=== PATIENT | female | born 1980 | race Caucasian/White ===

== ENCOUNTER 2016-09-09 20:09 | Emergency (ER) | payer BC ==
[~2016-09-09] VITALS: Ht 157.5 cm; Wt 61.2 kg
[~2016-09-09 20:09] MED LIST: LIPA1CAP6 PO; ONDA8TAB12 PO; PANT40TA3 PO; SODI20VI2 IV; TRAM50TA PO
[2016-09-09] MEDS ORDERED: IV NORMAL SALINE 1000ML BAG 1,000 ML IV SCH (20:30)
[2016-09-09 20:45] LABS: BASO % 0 % (0-3); EOS % 1 % (0-3); HEMATOCRIT 34.4 % (36.0-47.0); LYMPH # 0.7 x10^3/uL (1.0-4.8); LYMPH % 12 % (24-48); MEAN CORPUSCULAR HEMOGLOBIN 25 pg (25-35); MEAN CORPUSCULAR HGB CONC 32 g/dL (31-37); MEAN CORPUSCULAR VOLUME 79 fL (79-100); MONO % 6 % (0-9); NEUT % 81 % (31-73); PLATELET COUNT 209 x10^3/uL (140-400); RED BLOOD COUNT 4.34 x10^6/uL (3.50-5.40); RED CELL DISTRIBUTION WIDTH 20.5 % (11.5-14.5); WHITE BLOOD COUNT 5.7 x10^3/uL (4.0-11.0)
[2016-09-09] MEDS ORDERED: ONDANSETRON PF 4 MG/2 ML VIAL. IV ONE (20:45)
[2016-09-09] MEDS ORDERED: HYDROMORPHONE 2 MG/ML VIAL. IV ONE (20:45)
--- NOTE | 2016-09-09 20:58 | PHYS DOC ---
Past Medical History Past Medical History: Pancreatitis Past Surgical History: Other Additional Past Surgical Histo: Whipple, portacath for TPN Alcohol Use: None Drug Use: None Adult General Chief Complaint Chief Complaint: ABDOMINAL PAIN HPI HPI Patient is a 36 year old female with chronic pancreatitis who presents with few days of nbnb emesis x multiple and LUQ abdominal pain that is constant and gradually worsening. States this feels exactly like prior pancreatitis pains. States she usually comes to the ED to get symptom control and then returns home for bowel rest and TPN administration. Had a normal BM today. Denies f/c, dysuria, back pain, dark or bloody stools, abd distension, chest pain, cough. Review of Systems Review of Systems Constitutional: Denies fever or chills [] Eyes: Denies change in visual acuity, redness, or eye pain [] HENT: Denies nasal congestion or sore throat [] Respiratory: Denies cough or shortness of breath [] Cardiovascular: No additional information not addressed in HPI [] GI: Denies bloody stools or diarrhea [] : Denies dysuria or hematuria [] Musculoskeletal: Denies back pain or joint pain [] Integument: Denies rash or skin lesions [] Neurologic: Denies headache, focal weakness or sensory changes [] Endocrine: Denies polyuria or polydipsia [] Current Medications Current Medications Current Medications Medications (Trade) Dose Ordered Sig/Jessica Start Time Stop Time Status Last Admin Dose Admin Diphenhydramine HCl (Benadryl) 25 mg 1X ONCE 09/09/16 21:30 09/09/16 21:31 DC 09/09/16 22:18 25 MG Hydromorphone HCl (Dilaudid) 1 mg 1X ONCE 09/09/16 21:30 09/09/16 21:31 DC 09/09/16 22:18 1 MG Ondansetron HCl (Zofran) 8 mg 1X ONCE 09/09/16 20:45 09/09/16 20:46 DC 09/09/16 20:43 8 MG Sodium Chloride (Iv Sodium Chloride 0.9% 1000ml Bag) 1,000 ml @ 1,000 mls/hr Q1H 09/09/16 20:30 09/09/16 21:29 DC 09/09/16 20:43 1,000 MLS/HR Allergies Allergies Allergies Coded Allergies Type Severity Reaction Last Updated Verified acetaminophen Allergy Unknown removal of 85% of pancreas 01/04/14 No ketorolac Allergy Unknown itching, swelling 01/04/14 No metoclopramide Allergy Unknown shakes 01/04/14 No Physical Exam Physical Exam Constitutional: Well developed, well nourished, no acute distress, non-toxic appearance. [] HENT: Normocephalic, atraumatic, bilateral external ears normal, oropharynx moist, nose normal. [] Eyes: PERRLA, EOMI. [] Neck: Normal range of motion, supple. [] Cardiovascular:Heart rate regular rhythm [] Lungs & Thorax: Bilateral breath sounds clear to auscultation [] Abdomen: Bowel sounds normal, soft, mild LUQ tenderness, no guarding or rebound. [] Skin: Warm, dry, no erythema, no rash. [] Back: No tenderness, no CVA tenderness. [] Extremities: No tenderness, ROM intact, no edema. [] Neurologic: Alert and oriented X 3, normal motor function, normal sensory function, no focal deficits noted. [] Psychologic: Affect normal, judgement normal, mood normal. [] Current Patient Data Vital Signs Vital Signs Date Time Temp Pulse Resp B/P Pulse Ox O2 Delivery O2 Flow Rate FiO2 09/09/16 20:15 98.1 122 18 141/74 99 Room Air 98.1 Lab Values Laboratory Tests Test 09/09/16 20:36 White Blood Count 5.7x10^3/uL (4.0-11.0) Red Blood Count 4.34x10^6/uL (3.50-5.40) Hemoglobin 11.0g/dL (12.0-15.5) L Hematocrit 34.4% (36.0-47.0) L Mean Corpuscular Volume 79fL (79-100) Mean Corpuscular Hemoglobin 25pg (25-35) Mean Corpuscular Hemoglobin Concent 32g/dL (31-37) Red Cell Distribution Width 20.5% (11.5-14.5) H Platelet Count 209x10^3/uL (140-400) Neutrophils (%) (Auto) 81% (31-73) H Lymphocytes (%) (Auto) 12% (24-48) L Monocytes (%) (Auto) 6% (0-9) Eosinophils (%) (Auto) 1% (0-3) Basophils (%) (Auto) 0% (0-3) Neutrophils # (Auto) 4.6x10^3uL (1.8-7.7) Lymphocytes # (Auto) 0.7x10^3/uL (1.0-4.8) L Monocytes # (Auto) 0.3x10^3/uL (0.0-1.1) Eosinophils # (Auto) 0.1x10^3/uL (0.0-0.7) Basophils # (Auto) 0.0x10^3/uL (0.0-0.2) Platelet Estimate Adequate (ADEQUATE) Hypochromasia Slight Anisocytosis Mod Microcytosis Slight Ovalocytes Mod Schistocytes Occ Sodium Level 144mmol/L (136-145) Potassium Level 3.3mmol/L (3.5-5.1) L Chloride Level 107mmol/L (98-107) Carbon Dioxide Level 26mmol/L (21-32) Anion Gap 11 (6-14) Blood Urea Nitrogen 8mg/dL (7-20) Creatinine 0.8mg/dL (0.6-1.0) Estimated GFR (Cockcroft-Gault) 80.7 Glucose Level 202mg/dL (70-99) H Calcium Level 9.0mg/dL (8.5-10.1) Total Bilirubin 0.3mg/dL (0.2-1.0) Direct Bilirubin 0.1mg/dL (0.0-0.2) Aspartate Amino Transferase (AST) 29U/L (15-37) Alanine Aminotransferase (ALT) 24U/L (14-59) Alkaline Phosphatase 137U/L (46-116) H Total Protein 7.5g/dL (6.4-8.2) Albumin 3.2g/dL (3.4-5.0) L Lipase 31U/L (73-393) L Laboratory Tests 09/09/16 20:36 Laboratory Tests 09/09/16 20:36 Course & Med Decision Making Course & Med Decision Making Pertinent Labs and Imaging studies reviewed. (See chart for details) Laboratory evaluation is unremarkable. She is feeling much better after medications and ready to go home. Abdominal exam s/nt/nd. Return precautions given. She understands and agrees with plan. Dragon Disclaimer Dragon Disclaimer This electronic medical record was generated, in whole or in part, using a voice recognition dictation system. Departure Departure Impression: Primary Impression: Abdominal pain Additional Impression: Nausea & vomiting Disposition: 01 HOME, SELF-CARE Condition: STABLE Referrals: ALIX ODONNELL (PCP) Patient Instructions: Abdominal Pain, [id number] Additional Instructions: Follow up with your primary care doctor. Return for any concerns. Problem Qualifiers Primary Impression: Abdominal pain Abdominal location: left upper quadrant Qualified Code: R10.12 - Left upper quadrant pain Additional Impression: Nausea & vomiting Vomiting type: unspecified Vomiting Intractability: non-intractable Qualified Code: R11.2 - Nausea with vomiting, unspecified Sheyla KILLIAN MD Sep 09, 2016 20:58
[2016-09-09 21:11] LABS: ANISOCYTOSIS MOD; CREATININE 0.8 mg/dL (0.6-1.0); GFR 80.7; HYPOCHROMIA SLIGHT; MICROCYTOSIS SLIGHT; PLT ESTIMATE ADEQUATE (ADEQUATE); POTASSIUM 3.3 mmol/L (3.5-5.1)
[2016-09-09 21:12] LABS: OVALOCYTES MOD; SCHISTOCYTES OCC
[2016-09-09 21:16] LABS: ALBUMIN 3.2 g/dL (3.4-5.0); DIRECT BILIRUBIN 0.1 mg/dL (0.0-0.2); TOTAL BILIRUBIN 0.3 mg/dL (0.2-1.0); TOTAL PROTEIN 7.5 g/dL (6.4-8.2)
[2016-09-09] MEDS ORDERED: DIPHENHYDRAMINE HCL 25 MG CAPSULE PO ONE (21:30)
[2016-09-09] MEDS ORDERED: HYDROMORPHONE 2 MG/ML VIAL. IVP ONE (21:30)
[2016-09-09 22:32] VITALS: BP 105/60
== END 2016-09-09 22:45 | disposition home or self-care (01) ==
LOC: ER 20:10
DX: R10.12 Left upper quadrant pain (principal); R11.2 Nausea with vomiting, unspecified; Z88.6 Allergy status to analgesic agent; Z88.8 Allergy status to other drugs, medicaments and biological substances
CPT/HCPCS: 36415; 80048; 80076; 83690; 85007; 85027; 96361; 96374; 96375; 96376; 99284; J1170; J2405; J7030; Q0163

== ENCOUNTER 2016-12-03 14:08 | Emergency (ER) | payer BC ==
[~2016-12-03] VITALS: Ht 157.5 cm; Wt 63.5 kg
[2016-12-03] MEDS ORDERED: HYDROmorphone 2 MG/ML VIAL IM ONE (15:00)
[2016-12-03] MEDS ORDERED: diphenhydrAMINE 50 MG/ML VIAL IM ONE (15:00)
[2016-12-03] MEDS ORDERED: ONDANSETRON PF 4 MG/2 ML VIAL. IM ONE (15:00)
--- NOTE | 2016-12-03 15:09 | PHYS DOC ---
Past Medical History Past Medical History: GERD, Pancreatitis Past Surgical History: Appendectomy, Cholecystectomy Additional Past Surgical Histo: WHIPPLE, REVISION OF ADHESIONS, HERNIA REPAIR, DENTAL IMPLANTS Alcohol Use: None Drug Use: None Adult General Chief Complaint Chief Complaint: ABDOMINAL PAIN HPI HPI Patient is a 36 year old female who presents to the ED with a complaint of abdominal pain and vomiting for "a few days". The patient has a long history of pancreatitis issues. She is status post Whipple procedure. She has a port and gives herself TPN at home as needed. Patient states when she is feeling well she is able to eat and drink some but when she is having flareups she uses the TPN at home. Today she is complaining of nausea and vomiting, last vomited this morning. She took Zofran ODT, the last time at noon. The patient did use her TPN overnight and got about 1800 mL in 18 hours. I have seen this patient many times at [facility]. I ask her whether she goes to other hospitals and she states that she occasionally goes to [facility], she does not remember the last time she was there, the last time was about maybe 2 months ago. She does not have a primary care doctor here [place], she states the reason she started coming to [place] is that she had heard of a doctor here but it's no one that she has been seeing. She sees a specialist in [place], a pancreas specialist. Her next appointment is in 1-1/2 weeks. Primary care is through Dr. Rossana Odonnell but she said it's been a few months since she saw her. She sees pain management Dr. Villela at the pain [facility], she is prescribed look with oxycodone, she took the last dose about 10:30 today. She's been seeing him for about 2 years. Review of Systems Review of Systems Constitutional: Denies fever or chills [] HENT: Denies nasal congestion or sore throat [] Respiratory: Denies cough or shortness of breath [] Cardiovascular: No additional information not addressed in HPI [] GI: As in history of present illness Musculoskeletal: Denies back pain or joint pain [] Integument: Denies rash or skin lesions [] Neurologic: Denies headache, focal weakness or sensory changes [] Current Medications Current Medications Current Medications Medications (Trade) Dose Ordered Sig/Jessica Start Time Stop Time Status Last Admin Dose Admin Diphenhydramine HCl (Benadryl) 25 mg 1X ONCE 12/03/16 15:00 12/03/16 15:07 DC 12/03/16 15:15 25 MG Hydromorphone HCl (Dilaudid) 1 mg 1X ONCE 12/03/16 15:00 12/03/16 15:07 DC 12/03/16 15:19 1 MG Ondansetron HCl (Zofran) 8 mg 1X ONCE 12/03/16 15:00 12/03/16 15:07 DC 12/03/16 15:14 8 MG Allergies Allergies Allergies Coded Allergies Type Severity Reaction Last Updated Verified acetaminophen Allergy Unknown removal of 85% of pancreas 01/04/14 No ketorolac Allergy Unknown itching, swelling 01/04/14 No metoclopramide Allergy Unknown shakes 01/04/14 No Physical Exam Physical Exam Constitutional: Well developed, well nourished, no acute distress, non-toxic appearance. Alert, mentating normally, entirely nontoxic in appearance. She is tachycardic in the 120s. HENT: Normocephalic, atraumatic, bilateral external ears normal, nose normal. [ ] Eyes: conjunctiva normal, no discharge. [] Neck: Normal range of motion, no stridor. [] Cardiovascular:Heart rate regular rhythm, no murmur [] Lungs & Thorax: Bilateral breath sounds clear to auscultation [] Abdomen: Bowel sounds normal, soft, nondistended, no tenderness, no masses, no pulsatile masses. [] Skin: Warm, dry, no erythema, no rash. [] Extremities: No tenderness, no cyanosis, no clubbing, ROM intact, no edema. [] Neurologic: Alert and oriented X 3, normal motor function, normal sensory function, no focal deficits noted. [] Current Patient Data Vital Signs Vital Signs Date Time Temp Pulse Resp B/P (MAP) Pulse Ox O2 Delivery O2 Flow Rate FiO2 12/03/16 15:31 105 22 120/84 (96) 97 Room Air 12/03/16 14:18 99.3 99.3 Lab Values Laboratory Tests Test 12/03/16 13:41 POC Urine HCG, Qualitative Hcg negative (Negative) EKG EKG [] Radiology/Procedures Radiology/Procedures [] Course & Med Decision Making Course & Med Decision Making Pertinent Labs and Imaging studies reviewed. (See chart for details) 36-year-old female with a history of chronic/recurrent pancreatitis presents with the complaint of abdominal pain and vomiting. I was able to review the patient's previous record here. I have seen this patient many times in the past. I discussed with the patient and her that we often check labs and they are normal. ED nursing staff tried twice to get an IV started on the patient and were not able to do so. The patient has her port accessed but she states that is only to be used for TPN and nothing else. I feel it would be appropriate to treat the patient with IM medications today since we did have a difficult time getting IV access and I feel its necessarily indicated to keep trying to get an IV. The patient will be able to continue to use TPN so her hydration status should not be compromised. The patient is tachycardic here but I suspect that may be related to some medication. The patient is very nontoxic and afebrile. She states her heart rate is often high when she is having a flareup. The patient was given IM dosed medications for pain and nausea and discharged with her [] Dragon Disclaimer Dragon Disclaimer This electronic medical record was generated, in whole or in part, using a voice recognition dictation system. Departure Departure Impression: Primary Impression: Nausea & vomiting Disposition: 01 HOME, SELF-CARE Condition: STABLE Referrals: ALIX ODONNELL (PCP) Additional Instructions: As we discussed, continue to use your TPN as ordered. Make sure to follow up with your providers who help manage your chronic medical conditions. ZEENAT REDMAN MD Dec 03, 2016 15:09
[2016-12-03 15:31] VITALS: BP 120/84
== END 2016-12-03 15:39 | disposition home or self-care (01) ==
LOC: ER 14:08
DX: R11.2 Nausea with vomiting, unspecified (principal); R00.0 Tachycardia, unspecified; R10.9 Unspecified abdominal pain; K21.9 Gastro-esophageal reflux disease without esophagitis; Z88.8 Allergy status to other drugs, medicaments and biological substances; Z88.6 Allergy status to analgesic agent; Z90.49 Acquired absence of other specified parts of digestive tract
CPT/HCPCS: 81025; 96372; 99284; J1170; J1200; J2405

== ENCOUNTER 2017-03-25 20:11 | Emergency (ER) | payer BC ==
[~2017-03-25] VITALS: Ht 157.5 cm; Wt 65.8 kg
[2017-03-25 20:25] LABS: BILIRUBIN,URINE NEGATIVE (NEG); GLUCOSE,URINE NEGATIVE (NEG); NITRITE,URINE NEGATIVE (NEG); PROTEIN,URINE NEGATIVE (NEG-TRACE); UROBILINOGEN,URINE 0.2 mg/dL (0.2 mg/dL)
[2017-03-25] MEDS ORDERED: ONDANSETRON PF 4 MG/2 ML VIAL. IV ONE ×2 (20:30→22:00)
[2017-03-25] MEDS ORDERED: IV NORMAL SALINE 1000ML BAG 1,000 ML IV SCH (20:30)
--- NOTE | 2017-03-25 20:30 | PHYS DOC ---
Past Medical History Past Medical History: GERD, Pancreatitis Past Surgical History: Appendectomy, Cholecystectomy Additional Past Surgical Histo: WHIPPLE, REVISION OF ADHESIONS, HERNIA REPAIR, DENTAL IMPLANTS Alcohol Use: None Drug Use: None Adult General Chief Complaint Chief Complaint: ABDOMINAL PAIN HPI HPI Patient is a 36 year old female who presents with nausea, vomiting and abdominal pain. Patient has chronic pancreatitis, chronic vomiting, chronic abdominal pain. She's had a prior Whipple procedure and now has a port. She states this episode started last Sunday. She's been vomiting 10 times to the point where now she is dry heaving. Diffuse abdominal pain. No diarrhea. No blood in her stool. No urinary complaints. No recent travel. No fever or chills. No cough or cold symptoms. She has had multiple prior visits last one was December 03, 2016 for similar complaints here at [facility]. Review of Systems Review of Systems Constitutional: Denies fever or chills Eyes: Denies change in visual acuity, redness, or eye pain HENT: Denies nasal congestion or sore throat Respiratory: Denies cough or shortness of breath Cardiovascular: No chest pain GI: POS abdominal pain, POS nausea, vomiting, DENIES bloody stools or diarrhea : Denies dysuria or hematuria Musculoskeletal: Denies back pain or joint pain Integument: Denies rash or skin lesions Current Medications Current Medications Current Medications Medications (Trade) Dose Ordered Sig/Jessica Start Time Stop Time Status Last Admin Dose Admin Diphenhydramine HCl (Benadryl) 25 mg 1X ONCE 03/25/17 21:00 03/25/17 21:01 DC 03/25/17 20:50 25 MG Hydromorphone HCl (Dilaudid) 1 mg 1X ONCE 03/25/17 22:00 03/25/17 22:01 DC 03/25/17 21:59 1 MG Ondansetron HCl (Zofran) 4 mg 1X ONCE 03/25/17 22:00 03/25/17 22:01 DC 03/25/17 22:00 4 MG Sodium Chloride 1,000 ml @ 1,000 mls/hr 1X ONCE 03/25/17 22:00 03/25/17 22:59 03/25/17 22:00 1,000 MLS/HR Allergies Allergies Allergies Coded Allergies Type Severity Reaction Last Updated Verified acetaminophen Allergy Unknown removal of 85% of pancreas 01/04/14 No ketorolac Allergy Unknown itching, swelling 01/04/14 No metoclopramide Allergy Unknown shakes 01/04/14 No Physical Exam Physical Exam Constitutional: Well developed, well nourished, no acute distress, non-toxic appearance. HENT: Normocephalic, atraumatic, bilateral external ears normal, oropharynx moist, no oral exudates, nose normal. Eyes: PERRLA, EOMI, conjunctiva normal, no discharge. Neck: Normal range of motion, no tenderness, supple, no stridor. Cardiovascular:Heart rate regular rhythm, no murmur Lungs & Thorax: Bilateral breath sounds clear to auscultation Abdomen: Bowel sounds normal, soft, mild diffuse tenderness, no masses, no pulsatile masses. Skin: Warm, dry, no erythema, no rash. Back: No tenderness, no CVA tenderness. Extremities: No tenderness, no cyanosis, no clubbing, ROM intact, no edema. Neurologic: Alert and oriented X 3, normal motor function, normal sensory function, no focal deficits noted. Psychologic: Affect normal, judgement normal, mood normal. Current Patient Data Vital Signs Vital Signs Date Time Temp Pulse Resp B/P (MAP) Pulse Ox O2 Delivery O2 Flow Rate FiO2 03/25/17 21:48 96 20 125/87 (100) 96 Room Air 03/25/17 20:26 98.2 98.2 Lab Values Laboratory Tests Test 03/25/17 20:15 03/25/17 20:19 03/25/17 20:26 Urine Collection Type Unknown Urine Color Yellow Urine Clarity Clear Urine pH 8.0 Urine Specific [place] 1.020 Urine Protein Negative mg/dL (NEG-TRACE) Urine Glucose (UA) Negative mg/dL (NEG) Urine Ketones (Stick) Negative mg/dL (NEG) Urine Blood Negative (NEG) Urine Nitrite Negative (NEG) Urine Bilirubin Negative (NEG) Urine Urobilinogen Dipstick 0.2 mg/dL (0.2 mg/dL) Urine Leukocyte Esterase Moderate (NEG) Urine RBC 0 /HPF (0-2) Urine WBC 5-10 /HPF (0-4) Urine Squamous Epithelial Cells Many /LPF Urine Bacteria Moderate /HPF (0-FEW) Urine Mucus Marked /LPF Urine Yeast Present /HPF POC Urine HCG, Qualitative Hcg negative (Negative) White Blood Count 10.6 x10^3/uL (4.0-11.0) Red Blood Count 4.78 x10^6/uL (3.50-5.40) Hemoglobin 14.1 g/dL (12.0-15.5) Hematocrit 41.3 % (36.0-47.0) Mean Corpuscular Volume 86 fL (79-100) Mean Corpuscular Hemoglobin 29 pg (25-35) Mean Corpuscular Hemoglobin Concent 34 g/dL (31-37) Red Cell Distribution Width 16.2 % (11.5-14.5) H Platelet Count 198 x10^3/uL (140-400) Neutrophils (%) (Auto) 78 % (31-73) H Lymphocytes (%) (Auto) 14 % (24-48) L Monocytes (%) (Auto) 6 % (0-9) Eosinophils (%) (Auto) 2 % (0-3) Basophils (%) (Auto) 0 % (0-3) Neutrophils # (Auto) 8.3 x10^3uL (1.8-7.7) H Lymphocytes # (Auto) 1.4 x10^3/uL (1.0-4.8) Monocytes # (Auto) 0.6 x10^3/uL (0.0-1.1) Eosinophils # (Auto) 0.2 x10^3/uL (0.0-0.7) Basophils # (Auto) 0.0 x10^3/uL (0.0-0.2) Prothrombin Time 14.6 SEC (11.7-14.0) H Prothrombin Time INR 1.2 (0.8-1.1) H PTT 32 SEC (24-38) Sodium Level 143 mmol/L (136-145) Potassium Level 3.7 mmol/L (3.5-5.1) Chloride Level 105 mmol/L (98-107) Carbon Dioxide Level 28 mmol/L (21-32) Anion Gap 10 (6-14) Blood Urea Nitrogen 9 mg/dL (7-20) Creatinine 0.8 mg/dL (0.6-1.0) Estimated GFR (Cockcroft-Gault) 80.7 BUN/Creatinine Ratio 11 (6-20) Glucose Level 119 mg/dL (70-99) H Calcium Level 9.2 mg/dL (8.5-10.1) Total Bilirubin 0.4 mg/dL (0.2-1.0) Aspartate Amino Transferase (AST) 25 U/L (15-37) Alanine Aminotransferase (ALT) 34 U/L (14-59) Alkaline Phosphatase 143 U/L (46-116) H Total Protein 8.1 g/dL (6.4-8.2) Albumin 3.7 g/dL (3.4-5.0) Albumin/Globulin Ratio 0.8 (1.0-1.7) L Lipase 41 U/L (73-393) L Laboratory Tests 03/25/17 20:26 Laboratory Tests 03/25/17 20:26 Radiology/Procedures Radiology/Procedures 2120 PM: Acute abdominal x-rays interpreted by myself at 21:20 PM show scattered ileus with nonspecific bowel gas pattern. No distinct air-fluid levels. No free air. Chest x-ray is clear. Course & Med Decision Making Course & Med Decision Making Evaluated patient upon arrival. Concerned about bowel obstruction; recurrent pancreatitis; ileus; cyclic vomiting; viral syndrome. IV NS, IV Dilaudid and zofran and benadryl (per patient's request). At 2100 PM: lab is normal. Acute abdominal films warm to avoid excess radiation times multiple prior CT scans. Abdominal films here showed no acute bowel obstruction. Scattered ileus and nonspecific bowel gas pattern noted. Reviewed findings with the patient and reevaluated patient. First liter fluids are in. She feels much better declines admission. We will re-dose one more course of medications and second liter fluids prior to discharge. Patient feels comfortable with that plan. Spouse is present and agrees as well. I have spoken with the patient and/or caregivers. I have explained the patient' s condition, diagnosis and treatment plan based on the information available to me at this time. I have answered the patient's and/or caregiver's questions and addressed any concerns. The patient and/or caregivers have as good an understanding of the patient's diagnosis, condition and treatment plan as can be expected at this point. The patient's condition is stable and appropriate for discharge from the emergency department. The patient will pursue further outpatient evaluation with the primary care physician or other designated or consulting physician as outlined in the discharge instructions. The patient and/or caregivers are agreeable to this plan of care and follow-up instructions have been explained in detail. The patient and/or caregivers have received these instructions in written format and have expressed an understanding of the discharge instructions. The patient and/or caregivers are aware that any significant change in condition or worsening of symptoms should prompt an immediate return to this or the closest emergency department or a call to 911. Dragon Disclaimer Dragon Disclaimer This electronic medical record was generated, in whole or in part, using a voice recognition dictation system. Departure Departure Impression: Primary Impression: Nausea & vomiting Additional Impression: Abdominal pain Disposition: HOME, SELF-CARE Condition: STABLE Referrals: ALIX ODONNELL (PCP) Patient Instructions: Nausea and Vomiting Additional Instructions: YOU WERE GIVEN TWO LITERS OF FLUID AND YOUR MEDICATIONS HERE. Scripts Ondansetron (ZOFRAN ODT) 4 Mg Tab.rapdis 4 MG PO BID Y for NAUSEA/VOMITING, #10 TAB Prov: MARLENI FARRIS MD 03/25/17 Problem Qualifiers Primary Impression: Nausea & vomiting Vomiting type: bilious vomiting Qualified Codes: R11.14 - Bilious vomiting Additional Impression: Abdominal pain Abdominal location: generalized Qualified Codes: R10.84 - Generalized abdominal pain MARLENI FARRIS MD Mar 25, 2017 20:30
[2017-03-25 20:33] LABS: BACTERIA,URINE MODERATE /HPF (0-FEW); RBC,URINE 0 /HPF (0-2); SQUAMOUS EPITHELIAL CELL,UR MANY /LPF; YEAST,URINE PRESENT /HPF
[2017-03-25 20:39] LABS: BASO % 0 % (0-3); EOS % 2 % (0-3); HEMATOCRIT 41.3 % (36.0-47.0); HEMOGLOBIN 14.1 g/dL (12.0-15.5); LYMPH # 1.4 x10^3/uL (1.0-4.8); LYMPH % 14 % (24-48); MEAN CORPUSCULAR HEMOGLOBIN 29 pg (25-35); MEAN CORPUSCULAR HGB CONC 34 g/dL (31-37); MEAN CORPUSCULAR VOLUME 86 fL (79-100); MONO % 6 % (0-9); NEUT % 78 % (31-73); PLATELET COUNT 198 x10^3/uL (140-400); RED BLOOD COUNT 4.78 x10^6/uL (3.50-5.40); RED CELL DISTRIBUTION WIDTH 16.2 % (11.5-14.5); WHITE BLOOD COUNT 10.6 x10^3/uL (4.0-11.0)
[2017-03-25 20:42] LABS: INR 1.2 (0.8-1.1); PROTHROMBIN TIME PATIENT 14.6 SEC (11.7-14.0)
[2017-03-25 20:44] LABS: CALCIUM 9.2 mg/dL (8.5-10.1); CREATININE 0.8 mg/dL (0.6-1.0); GFR 80.7; POTASSIUM 3.7 mmol/L (3.5-5.1)
[2017-03-25] MEDS ORDERED: HYDROmorphone 2 MG/ML VIAL IV ONE ×2 (20:45→22:00)
[2017-03-25 20:50] LABS: ALBUMIN 3.7 g/dL (3.4-5.0); ALBUMIN/GLOBULIN RATIO 0.8 (1.0-1.7); TOTAL BILIRUBIN 0.4 mg/dL (0.2-1.0); TOTAL PROTEIN 8.1 g/dL (6.4-8.2)
[2017-03-25] MEDS ORDERED: diphenhydrAMINE 50 MG/ML VIAL IVP ONE (21:00)
[2017-03-25] MEDS ORDERED: ONDA4TAB10 PO (21:46)
[2017-03-25] MEDS ORDERED: IV NORMAL SALINE 1000ML BAG 1,000 ML IV ONE (22:00)
[2017-03-25 22:48] VITALS: BP 122/77
--- NOTE | 2017-03-26 07:40 | RAD ---
Indication history of bowel obstruction nausea and vomiting. Protocol study. A single view of the chest was obtained. No prior imaging of the chest is available. The heart and pulmonary vessels appear normal. The lungs are clear. Bony structures appear grossly intact. A Port-A-Cath is noted IMPRESSION: No acute or focal process is seen in the chest
== END 2017-03-25 23:02 | disposition home or self-care (01) ==
LOC: ER 20:11
DX: R11.14 Bilious vomiting (principal); R10.84 Generalized abdominal pain; K21.9 Gastro-esophageal reflux disease without esophagitis; G89.29 Other chronic pain; Z90.411 Acquired partial absence of pancreas; Z90.49 Acquired absence of other specified parts of digestive tract; Z88.8 Allergy status to other drugs, medicaments and biological substances
CPT/HCPCS: 36415; 74022; 80053; 81001; 81025; 83690; 85025; 85610; 85730; 87086; 96361; 96374; 96375; 96376; 99285; J1170; J1200; J2405; J7030

== ENCOUNTER 2017-06-16 20:48 | Emergency (ER) | payer BC ==
[2017-06-16 21:30] LABS: BILIRUBIN,URINE NEGATIVE (NEG); GLUCOSE,URINE NEGATIVE (NEG); NITRITE,URINE NEGATIVE (NEG); PH,URINE 6.5; PROTEIN,URINE NEGATIVE (NEG-TRACE); UROBILINOGEN,URINE 0.2 mg/dL (0.2 mg/dL)
[2017-06-16 21:38] LABS: BACTERIA,URINE 0 /HPF (0-FEW); RBC,URINE RARE /HPF (0-2); SQUAMOUS EPITHELIAL CELL,UR FEW /LPF; WBC,URINE RARE /HPF (0-4)
[2017-06-16 21:44] LABS: ADD MAN DIFF? NO
[2017-06-16 21:49] LABS: BASO % 0 % (0-3); EOS % 3 % (0-3); HEMATOCRIT 36.3 % (36.0-47.0); LYMPH # 1.9 x10^3/uL (1.0-4.8); LYMPH % 16 % (24-48); MEAN CORPUSCULAR HEMOGLOBIN 30 pg (25-35); MEAN CORPUSCULAR HGB CONC 33 g/dL (31-37); MEAN CORPUSCULAR VOLUME 91 fL (79-100); MONO % 7 % (0-9); NEUT % 74 % (31-73); PLATELET COUNT 214 x10^3/uL (140-400); RED BLOOD COUNT 3.98 x10^6/uL (3.50-5.40); RED CELL DISTRIBUTION WIDTH 14.3 % (11.5-14.5); WHITE BLOOD COUNT 11.9 x10^3/uL (4.0-11.0)
[2017-06-16] MEDS: ONDANSETRON PF 4 MG/2 ML VIAL. IV ×2 (21:52→23:52)
[2017-06-16] MEDS: IV NORMAL SALINE 1000ML BAG 1,000 ML IV (21:52)
[2017-06-16] MEDS: fentaNYL PF VIAL 100 MCG/2 ML VIAL IV ×2 (21:53→23:53)
[2017-06-16 21:59] LABS: ANION GAP 8 (6-14); BLOOD UREA NITROGEN 7 mg/dL (7-20); BUN/CREATININE RATIO 7 (6-20); CALCIUM 8.4 mg/dL (8.5-10.1); CARBON DIOXIDE 29 mmol/L (21-32); CHLORIDE 105 mmol/L (98-107); GFR 62.1; GLUCOSE 96 mg/dL (70-99); POTASSIUM 4.1 mmol/L (3.5-5.1); SODIUM 142 mmol/L (136-145)
[2017-06-16 22:04] LABS: ALBUMIN 3.4 g/dL (3.4-5.0); ALBUMIN/GLOBULIN RATIO 0.9 (1.0-1.7); ALK PHOS 110 U/L (46-116); ALT (SGPT) 35 U/L (14-59); AST (SGOT) 31 U/L (15-37); TOTAL BILIRUBIN 0.2 mg/dL (0.2-1.0); TOTAL PROTEIN 7.1 g/dL (6.4-8.2)
[2017-06-16] MEDS ORDERED: IOHEXOL 300 MG/ML 100ML VIAL. IV (22:15)
[2017-06-16] MEDS: IOHEXOL 300 MG/ML 100ML VIAL. IV (22:25)
[2017-06-16] MEDS ORDERED: CONTRAST GIVEN MC (22:30)
== END 2017-06-16 23:54 | disposition home or self-care (01) ==
LOC: ER 20:48
DX: K56.690 Other partial intestinal obstruction (principal); K21.9 Gastro-esophageal reflux disease without esophagitis; Z90.49 Acquired absence of other specified parts of digestive tract; Z88.6 Allergy status to analgesic agent; Z88.8 Allergy status to other drugs, medicaments and biological substances
CPT/HCPCS: 36415; 74177; 80053; 81001; 83690; 85025; 96361; 96374; 96375; 96376; 99285-25; J2405; J3010; J7030; Q9967

== ENCOUNTER 2017-08-29 20:08 | Emergency (ER) | payer OTHER, BC ==
[2017-08-29 21:09] LABS: ADD MAN DIFF? NO
[2017-08-29 21:12] LABS: BILIRUBIN,URINE NEGATIVE (NEG); CLARITY,URINE CLEAR; COLOR,URINE YELLOW; GLUCOSE,URINE NEGATIVE (NEG); NITRITE,URINE NEGATIVE (NEG); PH,URINE 6.5; PROTEIN,URINE NEGATIVE (NEG-TRACE); UROBILINOGEN,URINE 0.2 mg/dL (0.2 mg/dL)
[2017-08-29 21:13] LABS: BASO % 1 % (0-3); EOS # 0.1 x10^3/uL (0.0-0.7); EOS % 1 % (0-3); HEMATOCRIT 37.5 % (36.0-47.0); HEMOGLOBIN 12.8 g/dL (12.0-15.5); LYMPH # 1.3 x10^3/uL (1.0-4.8); LYMPH % 13 % (24-48); MEAN CORPUSCULAR HEMOGLOBIN 30 pg (25-35); MEAN CORPUSCULAR HGB CONC 34 g/dL (31-37); MEAN CORPUSCULAR VOLUME 87 fL (79-100); MONO # 0.8 x10^3/uL (0.0-1.1); MONO % 7 % (0-9); NEUT # 8.3 x10^3uL (1.8-7.7); NEUT % 78 % (31-73); PLATELET COUNT 254 x10^3/uL (140-400); RED CELL DISTRIBUTION WIDTH 13.4 % (11.5-14.5); WHITE BLOOD COUNT 10.6 x10^3/uL (4.0-11.0)
[2017-08-29] MEDS: ONDANSETRON PF 4 MG/2 ML VIAL. IV (21:16)
[2017-08-29] MEDS: fentaNYL PF VIAL 100 MCG/2 ML VIAL IV ×2 (21:16→21:45)
[2017-08-29] MEDS: diphenhydrAMINE 50 MG/ML VIAL IVP (21:16)
[2017-08-29 21:19] LABS: BACTERIA,URINE FEW /HPF (0-FEW); SQUAMOUS EPITHELIAL CELL,UR MOD /LPF; WBC,URINE RARE /HPF (0-4); YEAST,URINE PRESENT /HPF
[2017-08-29 21:20] LABS: NEG OBC UR NEG; POS OBC UR POS; U PREG PATIENT NEGATIVE (NEG)
[2017-08-29 21:22] LABS: ANION GAP 12 (6-14); BLOOD UREA NITROGEN 4 mg/dL (7-20); BUN/CREATININE RATIO 4 (6-20); CALCIUM 9.5 mg/dL (8.5-10.1); CARBON DIOXIDE 22 mmol/L (21-32); CHLORIDE 108 mmol/L (98-107); CREATININE 0.9 mg/dL (0.6-1.0); GFR 70.1; GLUCOSE 121 mg/dL (70-99); POTASSIUM 3.3 mmol/L (3.5-5.1); SODIUM 142 mmol/L (136-145)
[2017-08-29 21:29] LABS: ALBUMIN 3.7 g/dL (3.4-5.0); ALBUMIN/GLOBULIN RATIO 0.8 (1.0-1.7); ALK PHOS 124 U/L (46-116); ALT (SGPT) 29 U/L (14-59); AMYLASE 11 U/L (25-115); AST (SGOT) 20 U/L (15-37); LIPASE 19 U/L (73-393); TOTAL BILIRUBIN 0.2 mg/dL (0.2-1.0); TOTAL PROTEIN 8.2 g/dL (6.4-8.2)
[2017-08-29] MEDS ORDERED: CONTRAST GIVEN MC (21:30)
[2017-08-29] MEDS: IOHEXOL 300 MG/ML 100ML VIAL. IV (22:05)
[2017-08-29] MEDS ORDERED: HYDROmorphone 2 MG/ML VIAL IV/SQ (23:00)
[2017-08-29] MEDS: POTASSIUM CHLORIDE 20MEQ 50 ML IV (23:11)
[2017-08-29] MEDS: MORPHINE SULFATE 4 MG/ML DISP.SYRIN. IV (23:17)
[2017-08-30] MEDS: POTASSIUM CHLORIDE 20MEQ 50 ML IV (00:44)
[2017-08-30] MEDS: fentaNYL PF VIAL 100 MCG/2 ML VIAL IV (00:55)
[2017-08-30] MEDS ORDERED: HEPARIN PF 500 UNIT/5 ML DISP.SYRIN. IV (02:25)
[2017-08-30] MEDS: HEPARIN PF 500 UNIT/5 ML DISP.SYRIN. IV (02:29)
== END 2017-08-30 02:29 | disposition home or self-care (01) ==
LOC: ER 08-30 02:29
DX: R10.12 Left upper quadrant pain (principal); R11.2 Nausea with vomiting, unspecified; R19.7 Diarrhea, unspecified; Z88.6 Allergy status to analgesic agent; Z88.8 Allergy status to other drugs, medicaments and biological substances
CPT/HCPCS: 36415; 74177; 80053; 81001; 81025; 82150; 83690; 85025; 96365; 96366; 96375; 96376; 99285-25; J1200; J2270; J2405; J3010; J3480; Q9967